=== PATIENT | female | born 1945 | race Caucasian/White ===

== ENCOUNTER → 2020-02-14 10:24 | Outpatient (BNVA) | payer MEDICARE, SELFPAY | PROVIDERS: Family Provider Family Medicine; PCP Family Medicine; Visit Provider Family Medicine | DX: Z00.00 Encounter for general adult medical examination without abnormal findings (principal); E03.8 Other specified hypothyroidism | CPT/HCPCS: 80053; 84443; 85025 ==

== ENCOUNTER → 2021-01-20 11:15 | Outpatient (BNVA) | payer MEDICARE, SELFPAY | PROVIDERS: Family Provider Family Medicine; PCP Family Medicine; Visit Provider Family Medicine | DX: E07.9 Disorder of thyroid, unspecified (principal); K12.0 Recurrent oral aphthae; L82.1 Other seborrheic keratosis | CPT/HCPCS: 80053; 84439; 84443; 85025 ==

== ENCOUNTER → 2022-01-14 08:59 | Outpatient (BNVA) | payer MEDICARE, SELFPAY | PROVIDERS: Family Provider Family Medicine; PCP Family Medicine; Visit Provider Family Medicine | DX: Z00.00 Encounter for general adult medical examination without abnormal findings (principal); E03.8 Other specified hypothyroidism; L84 Corns and callosities | CPT/HCPCS: 80053; 84443; 85025 ==

== ENCOUNTER → 2022-01-21 12:48 | Outpatient (BNVA) | payer MEDICARE, SELFPAY | PROVIDERS: Family Provider Family Medicine; PCP Family Medicine; Referring Provider Family Medicine; Visit Provider Podiatrist Foot & Ankle Surgery | DX: L84 Corns and callosities (principal); R60.9 Edema, unspecified | CPT/HCPCS: 99203 ==

== ENCOUNTER → 2022-06-06 13:46 | Outpatient (BNVA) | payer MEDICARE, SELFPAY | PROVIDERS: Family Provider Family Medicine; PCP Family Medicine; Visit Provider Emergency Medicine | DX: S99.912A Unspecified injury of left ankle, initial encounter (principal); W19.XXXA Unspecified fall, initial encounter; M79.89 Other specified soft tissue disorders | CPT/HCPCS: 73610 ==

== ENCOUNTER → 2022-07-27 10:08 | Outpatient (BNVA) | payer MEDICARE, SELFPAY | PROVIDERS: Family Provider Family Medicine; PCP Family Medicine; Visit Provider Family Medicine | DX: R63.4 Abnormal weight loss (principal); R68.89 Other general symptoms and signs; E03.8 Other specified hypothyroidism | CPT/HCPCS: 80053; 82150; 82550; 84439; 84443; 85025 ==

== ENCOUNTER 2022-08-04 11:30 | Outpatient (CLI) | payer MEDICARE, SELFPAY ==
--- NOTE | 2022-08-04 12:00 | CT_ITS ---
WS: [id number] CT ABDOMEN AND PELVIS NONCONTRAST HISTORY: wt loss of 24% past year. TECHNIQUE: Imaging performed through the abdomen and pelvis. Coronal and sagittal reformats are submi tted. All CT scans at [facility] use at least one of these dose optimization techniques: auto mated exposure control; mA and/or kV adjustment per patient size (includes targeted exams where dose is matched to clinical indication); or iterative reconstruction. DLP: 233.58 mGy.cm COMPARISON: None available. Lower thorax: Mild bilateral tree-in-bud airspace disease, LEFT greater than RIGHT. Normal size heart . Liver: Scattered granulomata. Gallbladder: Normal gallbladder. No pericholecystic fluid or cholelithiasis. No gallbladder wall thic kening. Pancreas: Poorly visualized pancreas. Spleen: Normal size with granulomata. Adrenal glands: Normal. No mass. Right kidney: Normal size kidney with no mass or hydronephrosis. Left kidney: Nonobstructing calcification 5 mm lower pole. Aorta: Mild atherosclerosis abdominal aorta with no aneurysm. No free fluid, intraperitoneal air or significant lymphadenopathy. GI tract: Normal noncontrast imaging of the stomach, small bowel and colon. No obstruction or wall th ickening. Appendix is not definitely identified. GI tract is limited without IV and oral contrast. Ov erlapping loops of colon with constipation. Abdominal wall: Negative. No hernia. Pelvis: No free fluid or adenopathy. Osseous structures: Curvature and scoliosis. L3 anterolisthesis by [address]/CT abdomen pelvis wo con [id number] IMPRESSION: 1. Quality of this examination is limited without IV and oral contrast. 2. Tortuous overlapping loops of GI track with no obstruction. 3. No ascites or adenopathy identified. 4. Mild tree-in-bud airspace disease at the lung bases. Typically seen with en dobronchial pneumonia.
== END 2022-08-04 11:31 | disposition home or self-care (01) ==
LOC: RAD 11:37
PROVIDERS: PCP Family Medicine; Visit Provider Family Medicine
DX: R63.4 Abnormal weight loss (principal); R68.89 Other general symptoms and signs; Q43.8 Other specified congenital malformations of intestine; J98.4 Other disorders of lung
CPT/HCPCS: 74176; 80053; 82150; 82550; 84439; 84443; 85025

== ENCOUNTER → 2022-09-22 10:31 | Outpatient (BNVA) | payer MEDICARE, SELFPAY | PROVIDERS: PCP Family Medicine; Visit Provider Surgery | DX: K59.00 Constipation, unspecified; R63.4 Abnormal weight loss | CPT/HCPCS: 99203 ==

== ENCOUNTER → 2022-11-05 10:32 | Outpatient (BNVA) | payer MEDICARE, SELFPAY | PROVIDERS: PCP Family Medicine; Visit Provider Podiatrist Foot & Ankle Surgery | DX: L84 Corns and callosities; M79.671 Pain in right foot; M79.672 Pain in left foot | CPT/HCPCS: 99213 ==

== ENCOUNTER 2022-12-02 08:28 | Day surgery (SDC) | payer MEDICARE, SELFPAY ==
--- NOTE | 2022-12-02 08:32 | PM.HP ---
Providers/Chief Complaint Primary Care Provider: Melissa Coleman MD Chief Complaint: Z12.11 History of Present Illness Esperanza Hancock is a 77 year old female Review of Systems General: Reports: 10 or more systems reviewed and unremarkable except in HPI and below Medications/Allergies Home Medications Medication Instructions Recorded Confirmed Last Taken Type levothyroxine 125 mcg tablet 1 ea PO 09/22/22 11/05/22 11/30/22 History Allergies Allergy/AdvReac Type Severity Reaction Status Date / Time Penicillins Allergy ALGY-Rash Verified 11/05/22 10:49 PFSH Acute PFSH: Medical History Abnormal weight loss Hypothalamic hypothyroidism Surgical History History of cataract extraction History of delivery History of open reduction and internal fixation (ORIF) procedure right leg History of tonsillectomy Social History Smoking and tobacco/nicotine status: never used tobacco/nicotine Second hand smoke exposure: No Alcohol intake: current Alcohol intake frequency: holidays/special occasions only Substance/Drug Use: never Lives independently: Yes Household members: spouse Housing: House Current gender identity: Female Special nolberto needs: No A&P Assessment and plan (1) Colon cancer screening: Plan Screening colonoscopy The risks and benefits of the procedure, including bleeding, infection, intestinal perforation requiring surgery, missed lesion were explained to the patient. The patient is understanding of the risks and wishes to proceed. Attestations Medical Necessity Statement*: Home Coding Level of Care Code Acute Code for Chg Fwd Diagnoses Colon cancer screening Z12.11
[2022-12-02 08:54] VITALS: BP 105/67; PULSE 61; RESP 16; TEMP 36.6; O2SAT 98; BMI 17.4
[2022-12-02] MEDS: sodium chloride 0.9% 1,000 ML 30 ML IV (09:05)
--- NOTE | 2022-12-02 09:19 | ANES.PREANE2 ---
Pre-Anesthetic Assessment Height/Weight: Height 1.68 m Weight 48.988 kg Temp Pulse Resp BP Pulse Ox O2 Del Method 97.8 F 61 16 105/67 98 Room Air 12/02/22 08:54 12/02/22 08:54 12/02/22 08:54 12/02/22 08:54 12/02/22 08:54 12/02/22 08:54 Operation Date: 12/02/22 09:30 Proposed Procedures p Colonoscopy 58297,Z12.11(Not Applicable) - Julián Evans DO Familial anesthetic complications: None Was Beta Yvette taken within 24 hours: N/A Was Clonidine taken within 24 hours: N/A Last intake: Intake Last Liquid Date 12/01/22 Last Liquid Time 22:00 Last Solid Date 11/30/22 Social No alcohol and No tobacco Exam alert, oriented x 3, clear to auscultation bilaterally and regular rate & rhythm Airway Mallampati: Class I Dentition: other (multiple missing) Metabolic Thyroid Disease Anesthetic Plan ASA status: 2 Anesthesia: MAC Risk of > 500 ml blood loss (7ml/kg in children): No Medications/Allergies Home Medications Medication Instructions Recorded Confirmed Last Taken Type levothyroxine 125 mcg tablet 125 mcg PO 09/22/22 11/05/22 11/30/22 History Allergies Allergy/AdvReac Type Severity Reaction Status Date / Time Penicillins Allergy ALGY-Rash Verified 12/02/22 08:52 Current Medications Generic Name Dose Route Start Last Admin Trade Name Freq PRN Reason Stop Dose Admin Sodium Chloride 1,000 mls @ 30 mls/hr 12/02/22 09:00 12/02/22 09:05 Sodium Chloride 0.9% IV 12/03/22 08:59 30 mls/hr .Q24H BANG Administration PFSH Anesthesia Medical History Abnormal weight loss Hypothalamic hypothyroidism Surgical History History of cataract extraction History of delivery History of open reduction and internal fixation (ORIF) procedure right leg History of tonsillectomy Social History Smoking and tobacco/nicotine status: never used tobacco/nicotine Second hand smoke exposure: No Alcohol intake: current Alcohol intake frequency: holidays/special occasions only Substance/Drug Use: never Lives independently: Yes Household members: spouse Housing: House Current gender identity: Female Special nolberto needs: No Data Anesthesia Cardiac Studies: No Data to Display
[2022-12-02 10:19] VITALS: BP 135/69; PULSE 62; RESP 10; TEMP 36.1; O2SAT 100
[2022-12-02 10:30] VITALS: BP 140/76; PULSE 63; RESP 16; O2SAT 100
== END 2022-12-02 11:15 | disposition home or self-care (01) ==
PROVIDERS: PCP Family Medicine; Visit Provider Surgery
PROC: 0DJD8ZZ Inspection of Lower Intestinal Tract, Via Natural or Artificial Opening Endoscopic (ICD-10-PCS; CPT 45378; principal; 2022-12-02 09:30)
DX: Z12.11 Encounter for screening for malignant neoplasm of colon (principal)
CPT/HCPCS: G0121; J2704; J3490; J7030

== ENCOUNTER → 2023-05-12 09:31 | Outpatient (BNVA) | payer MEDICARE, SELFPAY | PROVIDERS: PCP Family Medicine; Referring Provider Family Medicine; Visit Provider Psychiatry & Neurology Neurology | DX: R41.89 Other symptoms and signs involving cognitive functions and awareness (principal); R29.90 Unspecified symptoms and signs involving the nervous system; E55.9 Vitamin D deficiency, unspecified | CPT/HCPCS: 36415; 82306; 82542; 82607; 82746; 83735; 83921; 86592; 86780; 99203 ==

== ENCOUNTER 2023-05-26 10:19 | Outpatient (CLI) | payer MEDICARE, SELFPAY ==
--- NOTE | 2023-05-26 09:00 | CT_ITS ---
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 TECHNIQUE: Contiguous axial imaging performed through the brain in 2.5 mm imaging. Bone and soft tiss ue windows. Sagittal and coronal reformats reviewed. All CT scans at [facility] use at least one of these dose optimization techniques: automated exposure control; mA and/or kV adjustment per pa tient size (includes targeted exams where dose is matched to clinical indication); or iterative recon struction. DLP: 1026.63 mGy.cm COMPARISON: None available. No acute intracranial hemorrhage, midline shift or mass effect. Mild atrophy and mild small vessel ischemic disease. Mild cerebellar atrophy also. No prior infarct. Slightly greater atrophy within the temporal lobes. Ventricles: Normal size with no hydrocephalus. No inferior displacement the cerebellar tonsils. Paranasal sinuses: Dense consolidation RIGHT frontal sinus extending towards the frontoethmoid recess . Mild thickening of the posterior ethmoid air cells. Mastoid air cells: Well pneumatized. Calvarium and scalp: Skull is intact with no soft tissue edema or swelling. IMPRESSION: 1. No acute intracranial hemorrhage or edema. 2. Mild cerebral and cerebellar atrophy and small vessel ischemic disease. Slightly greater atrophy involving the temporal lobes. 3. RIGHT frontal sinus opacification. Mild secretions in the posterior ethmoid air cells.
== END 2023-05-26 10:20 | disposition home or self-care (01) ==
LOC: RAD 10:20
PROVIDERS: PCP Family Medicine; Visit Provider Psychiatry & Neurology Neurology
DX: F80.9 Developmental disorder of speech and language, unspecified (principal); F09 Unspecified mental disorder due to known physiological condition
CPT/HCPCS: 70450

== ENCOUNTER → 2023-07-13 11:37 | Outpatient (BNVA) | payer MEDICARE, SELFPAY | PROVIDERS: PCP Family Medicine; Visit Provider Psychiatry & Neurology Neurology | DX: G93.40 Encephalopathy, unspecified (principal); R41.89 Other symptoms and signs involving cognitive functions and awareness; F80.9 Developmental disorder of speech and language, unspecified; F09 Unspecified mental disorder due to known physiological condition; R41.3 Other amnesia; R94.01 Abnormal electroencephalogram [EEG] | CPT/HCPCS: 95816; 95819 ==

== ENCOUNTER → 2023-07-14 13:13 | Outpatient (BNVA) | payer MEDICARE, SELFPAY | PROVIDERS: PCP Family Medicine; Visit Provider Podiatrist Foot & Ankle Surgery | DX: L84 Corns and callosities; M79.671 Pain in right foot; M79.672 Pain in left foot | CPT/HCPCS: 99213 ==

== ENCOUNTER → 2023-09-16 10:03 | Outpatient (BNVA) | payer MEDICARE, SELFPAY | PROVIDERS: PCP Family Medicine; Visit Provider Psychiatry & Neurology Neurology | DX: F80.9 Developmental disorder of speech and language, unspecified (principal); F09 Unspecified mental disorder due to known physiological condition; E55.9 Vitamin D deficiency, unspecified; R41.89 Other symptoms and signs involving cognitive functions and awareness; E03.8 Other specified hypothyroidism; L82.1 Other seborrheic keratosis; K14.6 Glossodynia; K12.0 Recurrent oral aphthae; K14.0 Glossitis; J01.10 Acute frontal sinusitis, unspecified; R29.90 Unspecified symptoms and signs involving the nervous system; M79.671 Pain in right foot; M79.672 Pain in left foot | CPT/HCPCS: 36415; 82542; 99212; 99214 ==

== ENCOUNTER 2023-10-12 14:22 | Outpatient (CLI) | payer MEDICARE, SELFPAY ==
--- NOTE | 2023-10-12 15:15 | USCV_ITS ---
Santi Esperanza Age: 78 Gender: F : 1945 Exam Date: 10/12/2023 14:28 Ordering Phys: Mahesh Sahu MD Technologist: CT Exam [place] [facility] [place] Indication: Risk Factors: Previous Vascular Surgery: Right Brachial BP: / Left Brachial BP: / Right Left Velocity (cm/s) Spectral Plaque Velocity (cm/s) Spectral Plaque Syst/Diast Broadening Syst/Diast Broadening 107.50/17.70 Prox CCA 117.60/ 27.30 117.10/19.70 Mid CCA 105.20/ 21.30 77.40/ 15.30 Distal CCA 66.30 / 16.50 51.40/ 14.80 Prox ICA 70.70 / 21.40 72.90/ 19.80 Mid ICA 78.10 / 25.40 77.00/ 18.10 Distal ICA 68.80 / 23.80 104.10 ECA 99.10 1.00 ICA/CCA 1.20 Antegrade Vertebral Antegrade 45.70/ 9.30 cm/s 44.80/ 8.80 cm/s Tri Subclavian Tri 79.40 94.20 CONCLUSIONS Right ICA stenosis <50%. Moderate atheromatous plaque right carotid bulb/ICA. Left ICA stenosis <50%. Normal antegrade Doppler flow noted in the right vertebral artery. Normal antegrade Doppler flow noted in the left vertebral artery. Nico Pike MD (Electronically Signed) Final Date: 12 October 2023 15:37 S
== END 2023-10-12 14:23 | disposition home or self-care (01) ==
LOC: RAD 14:22
PROVIDERS: PCP Family Medicine; Visit Provider Psychiatry & Neurology Neurology
DX: I65.23 Occlusion and stenosis of bilateral carotid arteries (principal)
CPT/HCPCS: 93880

== ENCOUNTER → 2023-11-08 15:04 | Outpatient (BNVA) | payer MEDICARE, SELFPAY | PROVIDERS: PCP Family Medicine; Visit Provider Family Medicine | DX: E03.8 Other specified hypothyroidism (principal); R63.4 Abnormal weight loss | CPT/HCPCS: 80178 ==

== ENCOUNTER → 2024-03-20 12:37 | Outpatient (BNVA) | payer MEDICARE, SELFPAY | PROVIDERS: PCP Family Medicine; Visit Provider Psychiatry & Neurology Neurology | DX: F80.9 Developmental disorder of speech and language, unspecified (principal); F09 Unspecified mental disorder due to known physiological condition; E55.9 Vitamin D deficiency, unspecified; R41.89 Other symptoms and signs involving cognitive functions and awareness; F03.90 Unspecified dementia, unspecified severity, without behavioral disturbance, psychotic disturbance, mood disturbance, and anxiety | CPT/HCPCS: 99212 ==

== ENCOUNTER → 2024-06-01 11:48 | Outpatient (BNVA) | payer MEDICARE, SELFPAY | PROVIDERS: PCP Family Medicine; Visit Provider Family Medicine | DX: R63.4 Abnormal weight loss (principal); E03.8 Other specified hypothyroidism | CPT/HCPCS: 80053; 84443; 85025 ==

== ENCOUNTER → 2024-08-28 13:43 | Outpatient (BNVA) | payer MEDICARE, SELFPAY | PROVIDERS: PCP Family Medicine; Visit Provider Family Medicine | DX: E03.8 Other specified hypothyroidism (principal); R63.4 Abnormal weight loss | CPT/HCPCS: 84443 ==

== ENCOUNTER → 2024-09-27 12:59 | Outpatient (BNVA) | payer MEDICARE, SELFPAY | PROVIDERS: PCP Family Medicine; Visit Provider Podiatrist Foot & Ankle Surgery | DX: L84 Corns and callosities (principal); M79.671 Pain in right foot; M79.672 Pain in left foot | CPT/HCPCS: 99213 ==

== ENCOUNTER → 2024-10-09 13:21 | Outpatient (BNVA) | payer MEDICARE, SELFPAY | PROVIDERS: PCP Family Medicine | DX: E03.8 Other specified hypothyroidism (principal); E55.9 Vitamin D deficiency, unspecified | CPT/HCPCS: 82306; 84443 ==

== ENCOUNTER → 2024-11-11 13:46 | Outpatient (BNVA) | payer MEDICARE, SELFPAY | PROVIDERS: PCP Family Medicine | DX: R05.9 Cough, unspecified (principal) | CPT/HCPCS: 87400; 87426 ==

== ENCOUNTER → 2024-12-11 11:56 | Outpatient (BNVA) | payer MEDICARE, SELFPAY | PROVIDERS: PCP Family Medicine | DX: E55.9 Vitamin D deficiency, unspecified (principal); E03.8 Other specified hypothyroidism | CPT/HCPCS: 80053; 82306; 84443 ==